=== PATIENT | female | born 1950 | race Caucasian/White ===

== ENCOUNTER → 2018-10-20 11:16 | Observation (INO) ==
--- NOTE | 2018-10-20 02:43 | Internal Med History&Physical ---
Date of Encounter: 10/20/18 Time of Encounter: 02:45 Internal Medicine - H&P: HPI Chief complaint: Altered mental status Admitted From: Hospital to Hospital Transfer Plans for Post Hospital Care: Home History of present illness: Ms. Beckett is a 68 year old female Patient presented to [facility] after experiencing a fall at home. She had fallen off a barstool after she was left alone at home. Her 2 sons have been monitoring her but they left briefly, and during this time patient fell off the stool. They did not arrive back to the house until about 2-3 hours later. Patient is unsure how long she was on the ground for. She remembers sitting on the stool, but not falling. She had recent back surgery on October 16. Upon arrival, EMS noted that patient's speech was slurred and her pupils were constricted according to their documentation. She has been on pain medication, and took 2 oxycodones and gabapentin which were prescribed to her. She denies taking extra pain medicine. She was also recently started on Chantix and takes Xanax and gabapentin as well. Vital signs at [place]: Blood pressure 133/93, pulse 80, respiratory rate 14, temperature 97.1, pulse oximetry 98% on room air. Labs: CBC: White count 7.6, hemoglobin 12.7, hematocrit 38, platelets 282. BMP: Sodium 140, potassium 4.0, chloride 104, bicarbonate 30, nightly 10, creatinine 0.79, glucose 101. Calcium 9.2. Troponin undetectable Urinalysis negative for infection CK 78 Imaging: CT lumbar spine: Fluid and gas visualized within the posterior lower back soft tissue at the level of L4-L5 which may represent seroma versus developing abscess. There is large L4-L5 broad-based disc protrusion visualized similar to previous MRI. No acute osseous injury visualized at the lumbar spine CT maxillofacial: No acute facial bone osseous abnormality or prominent soft tissue posttraumatic finding no posttraumatic sinus opacity. CT brain without contrast: No acute CT brain abnormality no advanced atrophic changes Chest x-ray: Borderline heart size with mild central vascular prominence and left base atelectasis or infiltrate CT cervical spine: No evidence for acute osseous injury of the cervical spine. EKG showed normal sinus rhythm rate of 82, QTC 465. Right bundle branch block. No change from previous Blood cultures were drawn, patient was given azithromycin and vancomycin. She was transferred to [facility] for further management. Upon my evaluation, patient is awake alert and oriented 3. She is resting in the hospital bed in no acute distress. She has some soreness in her back at the surgical site. She denies chest pain, nausea, vomiting, diarrhea and constipation. She has some lower abdominal pain which she thinks may be related to the fact that she needs to go to the restroom. She is DNR/DNI. Past Med Surg Social Fam HX - Past Medical History Medical history: arthritis, COPD, GERD, hyperlipidemia, hypertension, other Additional medical history: lumbar stenosis- lumbar radiculopathy, focal motor deficit. tobacco dependency- smoker since age 46, 1/2 PPD. impaired fasting glucose. Thyroid nodule, FNA right nodule. severe insect sting allergies. allergic rhinits. DDD Psychiatric history: anxiety, depression - Past Surgical History Surgical History: cholecystectomy, hysterectomy, orthopedic, other, other Additional surgical history: rt shoulder. hernia repair. thyroid nodule removed. right TSR/reverse. right shoulder arthroscopy lysis of adhesions and manipulation - Social History Smoking Status: Current every day smoker Smokeless Tobacco Status: No Alcohol use: none Drug use: none - Family History Father Living Status: Still Living Hx Family Cardiac Disorders: Yes (HTN, 3 bybass) Internal Medicine - H&P: Meds Gabapentin [Neurontin] 600 mg PO BID 10/21/15 [History] Levothyroxine Sodium [Levoxyl] 75 mcg PO QAM 10/16/18 [History] Lisinopril [Zestril] 10 mg PO DAILY 10/16/18 [History] Acetaminophen [Non-Aspirin Extra Strength] 500 mg PO Q6H PRN 7 Days #28 tablet 10/17/18 [Rx] Docusate Sodium [Colace] 100 mg PO BID 5 Days #10 capsule 10/17/18 [Rx] Ibuprofen [Motrin] 600 mg PO Q6-8H PRN 7 Days #24 tab 10/17/18 [Rx] OxyCODONE Immed Rel [Roxicodone 5 MG] 5 mg PO Q6HR PRN 5 Days #20 tablet 10/17/18 [Rx] Varenicline Tartrate [Chantix Starting Month DELORIS] 1 each PO AD #1 dosepack 10/17/18 [Rx] ALPRAZolam [Xanax 1 MG Tablet] 1 mg PO BID 10/20/18 [History] Allergy/AdvReac Type Severity Reaction Status Date / Time penicillin G Allergy Rash Verified 01/25/16 12:12 pregabalin [From Lyrica] Allergy Insomnia Verified 01/25/16 12:12 All Systems PM: A 10-system review of systems was performed and is negative for pertinent findings except as documented above in the HPI. - Constitutional Vitals: Temp Pulse Resp BP Pulse Ox 97.5 F L 75 16 118/79 95 10/20/18 02:15 10/20/18 02:15 10/20/18 02:15 10/20/18 02:15 10/20/18 02:15 General appearance: Present: cooperative, A&O X 3, pleasant, no acute distress, answers questions appropriately Exam: - - Head Head exam: Present: normal inspection - Eye Eye exam: Present: EOMI, normal appearance - Respiratory Respiratory exam: Present: CTAB. Absent: rales, respiratory distress, rhonchi, wheezes - Cardiovascular Cardiovascular exam: Present: RRR. Absent: diastolic murmur, systolic murmur - GI/Abdominal GI/Abdominal exam: Present: normal bowel sounds, soft. Absent: tenderness - Extremities Exam Extremities exam: Present: warm, radial pulses palpable and symmetrical. Absent: calf tenderness, pedal edema, tenderness - Incison Incision: Present: clean and dry, intact. Absent: red, swollen, erythema, open - Back Exam Back exam: Present: tenderness Additional comments: Mild tenderness around the surgical site at lumbar spine - Neurological Exam Neurological exam: Present: no focal deficits, strengths equal and symetr throughout. Absent: motor sensory deficit, facial droop, speech deficit - Skin Skin exam: Present: dry, normal color, warm - Assessment and Plan (1) Acute encephalopathy Current Visit: Yes Status: Acute Assessment and plan: Resolved. Likely secondary to polypharmacy including addition of Chantix medicine patient was taking to help her quit smoking. Could also be exacerbated by possible pneumonia. Patient now fully alert awake and oriented. She has recent back surgery and was put on pain medicine as well. Discontinue Chantix. Patient did have hallucinations while on this medicine. Continue oxycodone 5 mg Hold home Xanax and gabapentin Continue to monitor (2) Fall Current Visit: Yes Status: Acute Assessment and plan: Secondary to possibly over medication/polypharmacy. Negative for abnormalities. Continue to monitor Qualifiers: Encounter type: initial encounter Qualified Code(s): W19.XXXA - Unspecified fall, initial encounter (3) Left lower lobe pneumonia Current Visit: Yes Status: Acute Assessment and plan: As seen on imaging. Patient was given azithromycin and vancomycin in the ER at [place]. Blood cultures were drawn. Follow up blood cultures Continue Azithromycin and add Ceftriaxone Monitor for worsening signs of infection. Qualifiers: Pneumonia type: due to unspecified organism Qualified Code(s): J18.1 - Lobar pneumonia, unspecified organism (4) History of recent surgery Current Visit: Yes Status: Acute Assessment and plan: Recent Lumbar spine surgery by Dr. Abdi. Incision appears intact. CT showed possible abscess, but changes likely more typical of sequela from surgery. Dr. Abdi called from [facility]. Will consult him while patient here at [place]. Follow up Dr. Abdi consult Continue IV vancomycin until cleared by Dr. Abdi Continue 5mg oxycodone, monitor for mental status. (5) Nicotine use disorder Current Visit: Yes Status: Acute Assessment and plan: Patient trying to quit. Nicotine patch Discontinue chantix (6) DVT prophylaxis Current Visit: Yes Status: Acute Assessment and plan: SCDs - Time Spent With Patient Total time spent is greater than 50% in coordination of care (as documented) at patient's floor/unit and/or counseling patient:
[2018-10-20] MEDS: Nicotine 21 MG PATCH.TD24 TD SCH ×2 (04:22→08:17)
[2018-10-20] MEDS: *HR* OxyCODONE Immed Rel 5 MG TABLET PO PRN ×2 (04:22→08:16)
[2018-10-20 05:48] LABS: Hematocrit 35.6 % (35.3-44.9); Hemoglobin 11.3 g/dL (11.5-15.4); Mean Corpuscular HGB Conc 31.7 g/dL (31.6-35.5); Mean Corpuscular Hemoglobin 29.3 pg (28.0-33.3); Mean Corpuscular Volume 92.2 fL (83.0-100.0); Mean Platelet Volume 9.8 fL (9.4-12.4); Platelet Count 256 K/mcL (140-400); Red Blood Count 3.86 M/mcL (3.82-4.97); Red Cell Distribution Width 13.1 % (11.5-14.5); White Blood Count 6.9 K/mcL (4.3-11.1)
[2018-10-20 06:08] LABS: BUN/Creatinine Ratio 16 (6-26); Blood Urea Nitrogen 10 mg/dL (8-23); Calcium 8.6 mg/dL (8.6-10.3); Carbon Dioxide 29 mEq/L (23-29); Chloride 105 mEq/L (98-107); Glucose 125 mg/dL (70-105); Osmolality,Calculated 293 (280-300); Potassium 3.8 mEq/L (3.5-5.1); Sodium 141 mEq/L (136-145); eGFR For African Americans > 60 (> 60); eGFR For Non-African Americans > 60 (> 60)
[2018-10-20 07:52] VITALS: BP 125/84
[~2018-10-20 11:16] MED LIST: Aminoglycoside Consult 1 EACH MC ONE; Azithromycin 500 MG in D5% in Water 250 ML IVPB SCH; Ibuprofen 600 MG TABLET PO PRN; Naloxone 0.4 MG/ML INJ IVP PRN; cefTRIAXone 1,000 MG in Water for inj. (sterile) 10 ML IVP SCH
--- NOTE | 2018-10-20 12:45 | Discharge Summary ---
- NOTES TO OUTPATIENT PROVIDER Notes to Outpatient Provider: PCP in 5 to 7 days Date of Encounter: 10/20/18 Time of Encounter: 12:42 - Discharge Diagnosis (1) Left lower lobe pneumonia Priority: Primary Status: Acute Qualifiers: Pneumonia type: due to unspecified organism Qualified Code(s): J18.1 - Lobar pneumonia, unspecified organism (2) History of recent surgery Priority: Secondary Status: Acute (3) Acute encephalopathy Priority: Secondary Status: Acute (4) Nicotine use disorder Priority: Secondary Status: Acute (5) Fall Priority: Secondary Status: Acute Qualifiers: Encounter type: initial encounter Qualified Code(s): W19.XXXA - Unspecified fall, initial encounter Hospital course: History of present illness: dr. Arredondo Ms. Beckett is a 68 year old female Patient presented to [facility] after experiencing a fall at home. She had fallen off a barstool after she was left alone at home. Her 2 sons have been monitoring her but they left briefly, and during this time patient fell off the stool. They did not arrive back to the house until about 2-3 hours later. Patient is unsure how long she was on the ground for. She remembers sitting on the stool, but not falling. She had recent back surgery on October 16. Upon arrival, EMS noted that patient's speech was slurred and her pupils were constricted according to their documentation. She has been on pain medication, and took 2 oxycodones and gabapentin which were prescribed to her. She denies taking extra pain medicine. She was also recently started on Chantix and takes Xanax and gabapentin as well. 10/20/18 Pt was unhappy with being on 3B. She stated she wanted to be transferred to her "home floor" and that she wanted to be seen by Dr. Valles. She was informed that she could not be transferred and that she should follow up out pt Dr. Valles as scheduled. Pt refused to stay and signed out AMA. - Time Spent with Patient Total time spent providing and/or coordinating discharge services: - Discharge Medications Prescriptions: No Action Gabapentin [Neurontin] 600 mg PO BID Lisinopril [Zestril] 10 mg PO DAILY Levothyroxine Sodium [Levoxyl] 75 mcg PO QAM Docusate Sodium [Colace] 100 mg PO BID 5 Days #10 capsule Ibuprofen [Motrin] 600 mg PO Q6-8H PRN 7 Days #24 tab PRN Reason: Pain Acetaminophen [Non-Aspirin Extra Strength] 500 mg PO Q6H PRN 7 Days #28 tablet PRN Reason: Mild To Moderate Pain OxyCODONE Immed Rel [Roxicodone 5 MG] 5 mg PO Q6HR PRN 5 Days #20 tablet PRN Reason: Severe Pain Varenicline Tartrate [Chantix Starting ] 1 each PO AD #1 dosepack ALPRAZolam [Xanax 1 MG Tablet] 1 mg PO BID Home Medications: Gabapentin [Neurontin] 600 mg PO BID 10/21/15 [History] Levothyroxine Sodium [Levoxyl] 75 mcg PO QAM 10/16/18 [History] Lisinopril [Zestril] 10 mg PO DAILY 10/16/18 [History] Acetaminophen [Non-Aspirin Extra Strength] 500 mg PO Q6H PRN 7 Days #28 tablet 10/17/18 [Rx] Docusate Sodium [Colace] 100 mg PO BID 5 Days #10 capsule 10/17/18 [Rx] Ibuprofen [Motrin] 600 mg PO Q6-8H PRN 7 Days #24 tab 10/17/18 [Rx] OxyCODONE Immed Rel [Roxicodone 5 MG] 5 mg PO Q6HR PRN 5 Days #20 tablet 10/17/18 [Rx] Varenicline Tartrate [Chantix Starting ] 1 each PO AD #1 dosepack 10/17/18 [Rx] ALPRAZolam [Xanax 1 MG Tablet] 1 mg PO BID 10/20/18 [History] Allergies/Adverse Reactions: Allergy/AdvReac Type Severity Reaction Status Date / Time penicillin G Allergy Rash Verified 01/25/16 12:12 pregabalin [From Lyrica] Allergy Insomnia Verified 01/25/16 12:12 Date of admission: 10/20/18 02:04 Primary care physician: PCP NONE Consults: 10/20/18 03:45 Consult to Orthopedic Surgery [CONS] Routine Consulting Provider: Bo Abdi Jr Reason for Consult: Recent surgery, fall at home. CT of lumbar spine showed fluid and gas, questionable developing abscess. Called from [facility]. Call Completed: Yes - Constitutional Vitals: Temp Pulse Resp BP Pulse Ox 98.0 F 75 15 125/84 95 10/20/18 07:48 10/20/18 07:48 10/20/18 07:48 10/20/18 07:48 10/20/18 07:48 General appearance: Present: cooperative, A&O X 3, pleasant, no acute distress, answers questions appropriately Exam: , - Patient Status Disposition: Left Against Medical Advice Condition: Fair - Discharge Instructions Follow Up With: NONE,PCP [Primary Care Provider] -
== END | disposition left against medical advice (07) ==
LOC: 3BNU
PROVIDERS: ADMIT Family Medicine; ATTEND Family Medicine